=== PATIENT | male | born 1960 | race Caucasian/White ===

== ENCOUNTER 2017-01-30 06:50 | Emergency (ER) | payer BC ==
[~2017-01-30] VITALS: Ht 172.7 cm; Wt 60.8 kg
[~2017-01-30 06:50] MED LIST: FLEXERIL10 MG PO; NAPROSYN500 MG PO; ULTRAM50 MG PO
[2017-01-30 08:13] LABS: HEMATOCRIT 43.8 % (38.0-50.0); MCH 32.7 PG (29.0-34.0); MCHC 34.5 G/DL (30.0-36.0); MCV 94.8 FL (86-99); MEAN PLAT.VOLUME 8.9 uM^3 (9.0-12.4); PLATELET COUNT 258 K/uL (156-360); RBC DIS.WIDTH-CV 12.1 % (11.8-14.6); RBC DIS.WIDTH-SD 42.4 % (39-53); RED BLOOD COUNT 4.62 M/uL (4.00-5.50); WHITE BLOOD COUNT 9.9 K/uL (4.1-10.2)
[2017-01-30 08:23] LABS: CHLORIDE 102 mEq/L (99-109); POTASSIUM 4.3 mEq/L (3.7-5.4); SODIUM 137 mEq/L (136-147)
[2017-01-30 08:25] LABS: GLUCOSE 138 mg/dL (70-99)
[2017-01-30 08:26] LABS: ANION GAP 8 MEQ/L (2-14)
[2017-01-30 08:27] LABS: TOTAL BILIRUBIN 1.3 mg/dL (0.0-1.0)
[2017-01-30 08:28] LABS: ALKALINE PHOSPHATASE 158 IU/L (3-129)
[2017-01-30 08:29] LABS: GFR ESTIMATE (CALCULATED) > 59 mL/min/
[2017-01-30 08:30] LABS: UREA NITROGEN (BUN) 11 mg/dL (9-23)
[2017-01-30 08:32] LABS: CREATINE KINASE 63 IU/L (1-294); TOTAL CK 63 IU/L (1-294)
[2017-01-30 08:33] LABS: CK-MB 0.6 ng/mL (0.0-4.9)
[2017-01-30 08:37] LABS: BILIRUBIN NEGATIVE; BLOOD NEGATIVE; COLOR AMBER ((YELLOW)); GLUCOSE (STRIP) NEGATIVE; KETONES NEGATIVE; LEUKOCYTES NEGATIVE; NITRITE NEGATIVE; PROTEIN (STRIP) NEGATIVE; SPECIFIC GRAVITY 1.018 (1.000-1.030)
[2017-01-30 08:40] LABS: ADD MIUA? NO
[2017-01-30 08:54] LABS: C-REACTIVE PROTEIN 6.3 MG/L (0-10)
[2017-01-30] MEDS ORDERED: MOTRIN800 MG PO (09:51)
[2017-01-30] MEDS ORDERED: FLEXERIL10 MG PO (09:51)
[2017-01-30] MEDS ORDERED: PREDNISONE20 MG PO (09:51)
[2017-01-30 10:00] VITALS: BP 136/83
== END 2017-01-30 10:01 | disposition home or self-care (01) ==
LOC: EME 06:50
PROVIDERS: Nurse Practitioner Family
DX: S39.012A Strain of muscle, fascia and tendon of lower back, initial encounter (principal); M62.830 Muscle spasm of back; X50.0XXA Overexertion from strenuous movement or load, initial encounter; Y93.89 Activity, other specified; F17.200 Nicotine dependence, unspecified, uncomplicated
CPT/HCPCS: 72100; 80053; 81003; 82550; 82553; 85027; 86140; 99281; 99284; J1885; J7512

== ENCOUNTER 2017-02-01 07:23 | Emergency (ER) | payer BC ==
[~2017-02-01] VITALS: Ht 175.3 cm; Wt 59.0 kg
[~2017-02-01 07:23] MED LIST changes: +MOTRIN800 MG PO; +PREDNISONE20 MG PO
[2017-02-01] MEDS ORDERED: TRAMADOL HCL50 MG PO (09:06)
[2017-02-01] MEDS ORDERED: LIDODERM 5% P1 PATCH TD (09:06)
[2017-02-01] MEDS ORDERED: BACLOFEN10 MG PO (09:06)
[2017-02-01 09:37] VITALS: BP 137/89
== END 2017-02-01 09:38 | disposition home or self-care (01) ==
LOC: EME 07:23
DX: M54.42 Lumbago with sciatica, left side (principal); S39.012A Strain of muscle, fascia and tendon of lower back, initial encounter; X58.XXXA Exposure to other specified factors, initial encounter; F17.210 Nicotine dependence, cigarettes, uncomplicated; Z71.6 Tobacco abuse counseling
CPT/HCPCS: 99281; 99284